=== PATIENT | male | born 1980 | race African-American/Black ===

== ENCOUNTER 2021-09-25 20:05 | Emergency (ER) | payer OTHER, SELFPAY ==
[~2021-09-25 20:05] MED LIST: Iopamidol-370 76% 500 ML 1 ML ONE
[2021-09-25] MEDS ORDERED: Ketorolac Tromethamine 30 MG/ML VIAL ONE (21:15)
[2021-09-25] MEDS ORDERED: Acetaminophen 500 MG TAB ONE (21:15)
[2021-09-25] MEDS ORDERED: Boostrix 0.5 ML (Tdap) VIAL ONE (21:27)
[2021-09-25 21:35] LABS: Mean Corpuscular HGB CONC 33.2 g/dL (32.0-36.0); Mean Corpuscular Hemoglobin 21.9 pg (27.0-31.0); Mean Corpuscular Volume 66.1 fL (78.0-98.0); Mean Platelet Volume 7.7 fL (7.4-10.4); Platelet Count 299 thou/uL (130-400); RBC Distribution Width 13.9 % (11.5-14.5); Red Blood Cell (RBC) Count 5.94 mill/uL (4.70-6.10); White Blood Cell (WBC) Count 7.2 thou/uL (4.8-10.8)
[2021-09-25 22:03] LABS: ALT (SGPT) 31 U/L (8-55); AST (SGOT) 40 U/L (5-34); Albumin 4.4 g/dL (3.5-5.0); Alkaline Phosphatase 70 U/L (40-110); Anion Gap 19 mmol/L (10-20); BUN (Urea Nitrogen) 13 mg/dL (8.9-20.6); Bilirubin, Total 0.6 mg/dL (0.2-1.2); Calc. Creatinine Clearance 0 mL/min (70-130); Calcium 9.1 mg/dL (7.8-10.44); Carbon Dioxide 20 mmol/L (22-29); Chloride 106 mmol/L (98-107); Globulin 3.8 g/dL (2.4-3.5); Glucose 88 mg/dL (70-105); Potassium 4.6 mmol/L (3.5-5.1); Protein, Total 8.2 g/dL (6.0-8.3); Sodium 140 mmol/L (136-145)
[2021-09-25 22:07] LABS: #Eosinphils 0.1 thou/uL (0.0-0.7); #Lymphocytes 1.9 thou/uL (1.20-3.40); #Monocytes 0.4 thou/uL (0.11-0.59); #Neutrophils 4.7 thou/uL (1.40-6.50); %Basophils 0.3 % (0.0-1.0); %Eosinophils 1.7 % (0.0-10.0); %Lymphocytes 26.8 % (21.0-51.0); %Monocytes 5.6 % (0.0-10.0); %Neutrophils 65.6 % (42.0-75.0); MDiff Complete? YES; Microcytosis SLIGHT = 6-15 cells (100X) (0-5/hpf)
[2021-09-25] MEDS ORDERED: Bacitracin 1 PK ONE (23:46)
== END 2021-09-26 00:16 | disposition home or self-care (01) ==
LOC: ERS 20:05
DX: S90.32XA Contusion of left foot, initial encounter (principal); S81.001A Unspecified open wound, right knee, initial encounter; S50.312A Abrasion of left elbow, initial encounter; S50.311A Abrasion of right elbow, initial encounter; S30.811A Abrasion of abdominal wall, initial encounter; S41.102A Unspecified open wound of left upper arm, initial encounter; S41.101A Unspecified open wound of right upper arm, initial encounter; J45.909 Unspecified asthma, uncomplicated; V23.4XXA Motorcycle driver injured in collision with car, pick-up truck or van in traffic accident, initial encounter; Z23 Encounter for immunization; Z87.891 Personal history of nicotine dependence
CPT/HCPCS: 74177; 80053; 85025; 90471; 90715; 96374; J1885; Q9967